=== PATIENT | male | born 1985 | race Caucasian/White ===

== ENCOUNTER 2018-12-03 16:36 | Emergency (ER) | payer SELFPAY ==
[2018-12-03 16:41] VITALS: BP 116/97
[2018-12-03] MEDS ORDERED: RIVA10TA (16:47)
--- NOTE | 2018-12-03 16:47 | ER Report ---
History and Physical Time Seen By MD: 16:47 Hx. of Stated Complaint: SPOUSE STATES PATIENT WAS IN PASSENGER SEAT WHEN HE STARTED TO SEIZE. DESCRIBED HIS ARMS WERE STIFF AND CONTRACTED TOWARDS MIDLINE. ESTIMATED SEIZURE LASTED 4 MINUTES AND THAT PATIENT WAS SOMNOLENT FOR 3 MINUTES AFTER. PATIENT FIRST ONLY KNEW HIS NAME. HE IS NOW COMPLETELY ORIENTED (ULISES TORRES MD) HPI/ROS 33-year-old male who admits to drinking approximately one half a gallon of vodka per day presents to the emergency department after having a seizure. He does not have a known seizure disorder. He is currently in the process of moving from [facility] to [place]. He stopped drinking vodka 3 days ago, and has only had 1-2 beers a day to try to control his tremor. His girlfriend was driving the car and noticed that he started with a rigid posture followed by diffuse shaking and drooling. The patient does not remember the episode. His girlfriend said it lasted approximately 6 minutes. He denies any recent trauma. He is supposed to be taking Xarelto for known multiple DVTs, but left his medication in [facility] and has not had any since November 23. Denies any chest pain or shortness of breath. He denies fever. He currently complains of a mild post ictal headache and a resting tremor. (ULISES TORRES MD) Home Meds Active Scripts Diazepam (VALIUM) 10 Mg Tablet, 1-2 TAB PO BID PRN for alcohol withdrawal, #15 TAB Prov:JOSE BALDWIN DO 12/03/18 Reported Medications Rivaroxaban 10 MG (Xarelto 10 MG) 10 Mg Tablet 12/03/18 Reviewed Nurses Notes: Yes Old Medical Records Reviewed: Yes (ULISES TORRES MD) Hx Smoking: Yes Smoking Status: Current: Every Day Smoker Hx Alcohol Use: Yes (ULISES TORRES MD) Constitutional Vital Sign - Last 24 Hours 12/03/18 16:41 Temp 98.0 Pulse 98 Resp 18 B/P (MAP) 116/97 Pulse Ox 97 O2 Delivery Room Air Intake and Output 0 12/03/18 12/03/18 12/04/18 14:59 22:59 06:59 Intake Total 300 ml Balance 300 ml (JOSE BALDWIN DO) Physical Exam General Appearance: The patient is alert, has no immediate need for airway protection and no current signs of toxicity. Eyes: Pupils equal and round no injection. Respiratory: Chest is non tender, lungs are clear to auscultation. Cardiac: regular rate and rhythm Gastrointestinal: Abdomen is soft and non tender, no masses, bowel sounds normal. Neck: Neck is supple and non tender. Extremities have full range of motion with pain and swelling in his left LE. He has a resting tremor Skin: No rashes or lesions. DIFFERENTIAL DIAGNOSIS: After history and physical exam differential diagnosis was considered for a seizure including but not limited to electrolyte abnormality, alcohol withdrawal, medication noncompliance, head injury, and breakthrough seizure. (ULISES TORRES MD) Medical Decision Making Data Points Result Diagram: 12/03/18 1652 12/03/18 1652 Laboratory Hematology Test 12/03/18 16:52 Red Blood Count 4.10 M/uL (4.00-5.60) Mean Corpuscular Volume 103.7 fL (80.0-96.0) Mean Corpuscular Hemoglobin 34.5 pg (26.0-33.0) Mean Corpuscular Hemoglobin Concent 33.2 g/dL (32.0-36.0) Red Cell Distribution Width 14.1 % (11.5-14.5) Mean Platelet Volume 8.2 fL (7.2-11.1) Neutrophils (%) (Auto) 58.1 % (39.4-72.5) Lymphocytes (%) (Auto) 26.0 % (17.6-49.6) Monocytes (%) (Auto) 12.7 % (4.1-12.4) Eosinophils (%) (Auto) 2.0 % (0.4-6.7) Basophils (%) (Auto) 1.2 % (0.3-1.4) Nucleated RBC Relative Count (auto) 0.1 /100WBC Neutrophils # (Auto) 3.0 K/uL (2.0-7.4) Lymphocytes # (Auto) 1.3 K/uL (1.3-3.6) Monocytes # (Auto) 0.7 K/uL (0.3-1.0) Eosinophils # (Auto) 0.1 K/uL (0.0-0.5) Basophils # (Auto) 0.1 K/uL (0.0-0.1) Nucleated RBC Absolute Count (auto) 0.00 K/uL Prothrombin Time 12.6 seconds (12.0-14.4) Prothromb Time International Ratio 0.94 Activated Partial Thromboplast Time 26 seconds (23-35) Sodium Level 136 mmol/L (137-145) Potassium Level 3.7 mmol/L (3.5-5.0) Chloride Level 98 mmol/L (98-107) Carbon Dioxide Level 23 mmol/L (22-30) Blood Urea Nitrogen 5 mg/dl (9-21) Creatinine 0.60 mg/dl (0.66-1.25) Glomerular Filtration Rate Calc > 60.0 Random Glucose 77 mg/dl (75-110) Lactate 2.9 mmol/L (0.7-2.1) Calcium Level 9.4 mg/dl (8.4-10.2) Magnesium Level 2.1 mg/dl (1.7-2.2) Total Bilirubin 0.9 mg/dl (0.2-1.3) Aspartate Amino Transf (AST/SGOT) 144 U/L (0-35) Alanine Aminotransferase (ALT/SGPT) 67 U/L (0-56) Alkaline Phosphatase 106 U/L (0-126) Total Protein 8.6 g/dl (6.3-8.2) Albumin 5.0 g/dl (3.5-5.0) Salicylates Level < 10 mg/L Salicylate Last Dose Date u Acetaminophen Level < 10 ug/ml Serum Alcohol 17 mg/dl Chemistry Test 12/03/18 16:52 White Blood Count 5.2 k/uL (4.5-11.0) Red Blood Count 4.10 M/uL (4.00-5.60) Hemoglobin 14.1 g/dL (14.0-18.0) Hematocrit 42.6 % (42.0-52.0) Mean Corpuscular Volume 103.7 fL (80.0-96.0) Mean Corpuscular Hemoglobin 34.5 pg (26.0-33.0) Mean Corpuscular Hemoglobin Concent 33.2 g/dL (32.0-36.0) Red Cell Distribution Width 14.1 % (11.5-14.5) Platelet Count 171 K/uL (150-450) Mean Platelet Volume 8.2 fL (7.2-11.1) Neutrophils (%) (Auto) 58.1 % (39.4-72.5) Lymphocytes (%) (Auto) 26.0 % (17.6-49.6) Monocytes (%) (Auto) 12.7 % (4.1-12.4) Eosinophils (%) (Auto) 2.0 % (0.4-6.7) Basophils (%) (Auto) 1.2 % (0.3-1.4) Nucleated RBC Relative Count (auto) 0.1 /100WBC Neutrophils # (Auto) 3.0 K/uL (2.0-7.4) Lymphocytes # (Auto) 1.3 K/uL (1.3-3.6) Monocytes # (Auto) 0.7 K/uL (0.3-1.0) Eosinophils # (Auto) 0.1 K/uL (0.0-0.5) Basophils # (Auto) 0.1 K/uL (0.0-0.1) Nucleated RBC Absolute Count (auto) 0.00 K/uL Prothrombin Time 12.6 seconds (12.0-14.4) Prothromb Time International Ratio 0.94 Activated Partial Thromboplast Time 26 seconds (23-35) Glomerular Filtration Rate Calc > 60.0 Lactate 2.9 mmol/L (0.7-2.1) Calcium Level 9.4 mg/dl (8.4-10.2) Magnesium Level 2.1 mg/dl (1.7-2.2) Total Bilirubin 0.9 mg/dl (0.2-1.3) Aspartate Amino Transf (AST/SGOT) 144 U/L (0-35) Alanine Aminotransferase (ALT/SGPT) 67 U/L (0-56) Alkaline Phosphatase 106 U/L (0-126) Total Protein 8.6 g/dl (6.3-8.2) Albumin 5.0 g/dl (3.5-5.0) Salicylates Level < 10 mg/L Salicylate Last Dose Date u Acetaminophen Level < 10 ug/ml Serum Alcohol 17 mg/dl Coagulation Test 12/03/18 16:52 Prothrombin Time 12.6 seconds Prothromb Time International Ratio 0.94 Activated Partial Thromboplast Time 26 seconds Toxicology Test 12/03/18 16:52 Salicylates Level < 10 mg/L Salicylate Last Dose Date u Acetaminophen Level < 10 ug/ml Serum Alcohol 17 mg/dl (JOSE BALDWIN DO) EKG/Imaging Imaging Results: Ultrasound of the right lower extremity was obtained. The results of the study are no findings consistent with acute DVT. The study was read by the radiologist. I viewed the images myself on the PACS system. (JOSE BALDWIN DO) ED Course/Re-evaluation ED Course Care was assumed from Dr. Torres at shift change with diagnostic CT and ultrasound of the lower extremity pending. Those studies were reviewed and are unremarkable. I had a long discussion with the patient's significant other and himself regarding admission to our behavioral health unit for medical detox since he had a alcohol withdrawal seizure. He is still mildly tachycardic. He showing no tremor or agitation after receiving Valium. Patient declined admission to [facility]. He is provided a prescription for Valium to prevent withdrawal seizures and aid through his alcohol withdrawal. She was administered an additional 20 g of Valium prior to discharge here in the emergency department. Decision to Disposition Date: Dec 03, 2018 Decision to Disposition Time: 18:52 (JOSE BALDWIN DO) Depart Departure Latest Vital Signs Vital Signs Date Time Temp Pulse Resp B/P (MAP) Pulse Ox O2 Delivery O2 Flow Rate FiO2 12/03/18 16:41 98.0 98 18 116/97 97 Room Air (JOSE BALDWIN DO) Impression: Primary Impression: Alcohol withdrawal seizure Condition: Improved Disposition: HOME OR SELF-CARE New Scripts Diazepam (VALIUM) 10 Mg Tablet 1-2 TAB PO BID PRN for alcohol withdrawal, #15 TAB Prov: JOSE BALDWIN DO 12/03/18 Patient Instructions: Alcohol Dependence (ED) Additional Instructions: Give Valium 1-2 tablets twice daily as needed for symptoms of withdrawal Follow-up with primary care within 1-3 days Problem Qualifiers Primary Impression: Alcohol withdrawal seizure Complication of substance-induced condition: uncomplicated Qualified Codes: F10.230 - Alcohol dependence with withdrawal, uncomplicated ULISES TORRES MD Dec 03, 2018 16:47 JOSE BALDWIN DO Dec 03, 2018 18:53
[2018-12-03] MEDS ORDERED: DIAZEPAM 50 MG/10 ML MDV IVP ONE (17:15)
[2018-12-03] MEDS ORDERED: DIAZEPAM 5 MG TAB PO ONE (17:15)
[2018-12-03] MEDS ORDERED: THIAMINE HCL(*) 200 MG/2 ML IN 100 MG, FOLIC ACID(*) 50 MG/10 ML INJ 1 MG, MULTIVITAMIN... IV ONE (17:15)
[2018-12-03 17:35] LABS: PLATELET COUNT, AUTOMATED 171 K/uL (150-450)
[2018-12-03 17:52] LABS: INR 0.94
--- NOTE | 2018-12-03 18:26 | RADIOLOGY IMAGING REPORT ---
FACILITY: [facility] PATIENT NAME: Tito Rosales : 1985 MR: [id number] V: [id number] EXAM DATE: [id number] ORDERING PHYSICIAN: ULISES TORRES TECHNOLOGIST: Location: [facility] [place] Patient: Tito Rosales : 1985 Visit/Account:[id number] Date of Sevice: 12/03/2018 EXAMINATION: Head CT without intravenous contrast HISTORY: New-onset seizure, detoxing from alcohol. COMPARISON: None. TECHNIQUE: Contiguous axial images were obtained from the skull base to the vertex without intraven ous contrast. Sagittal and coronal reformatted images are also submitted. One of the following dose optimization techniques was utilized in the performance of this exam: Autom ated exposure control; adjustment of the mA and/or kV according to the patient's size; or use of an i terative reconstruction technique. Specific details can be referenced in the facility's radiology C T exam operational policy. FINDINGS: Brain and intracranial structures: Ventricles, sulci, and cisterns are normal in size. Stokes-white ma tter differentiation is maintained. No midline shift, acute hemorrhage, acute infarct, or mass. Calvarium / scalp: Negative. No acute fracture. Skull base / visualized face: Negative. Visualized sinuses / orbits: Near complete opacification of the right maxillary sinus. Mild mucosal thickening in the ethmoid air cells and left maxillary sinus. IMPRESSION: No CT evidence of acute intracranial pathology. Paranasal sinus mucosal disease. Correlate for signs of acute sinusitis. Report Dictated By: Juan Torrez MD at 12/03/2018 6:12 PM Report E-Signed By: Juan Torrez MD at 12/03/2018 6:22 PM WSN:[id number]
--- NOTE | 2018-12-03 18:27 | RADIOLOGY IMAGING REPORT ---
FACILITY: [facility] PATIENT NAME: Tito Rosales : 1985 MR: [id number] V: [id number] EXAM DATE: ORDERING PHYSICIAN: ULISES TORRES TECHNOLOGIST: Location: [facility] [place] Patient: Tito Rosales : 1985 Visit/Account:[id number] Date of Sevice: 12/03/2018 CHEST SINGLE AP Indication: Seizure.. Comparison: None available Findings: Cardiomediastinal silhouette and pulmonary vessels within normal limits. There is no focal infiltrate or lobar consolidation. No pneumothorax or pleural effusion. Small nodular opacity in the medial right lower lobe appears to be a vessel seen on end. No discrete nodules. Upper abdomen is unremarkable. No acute bony abnormality. IMPRESSION: 1. No acute cardiopulmonary process. Report Dictated By: Laron Moore at 12/03/2018 6:21 PM Report E-Signed By: Laron Moore at 12/03/2018 6:22 PM WSN:[id number]
[2018-12-03] MEDS ORDERED: DIAZ-305 PO (18:55)
[2018-12-03] MEDS ORDERED: DIAZEPAM 5 MG TAB TH 2 TAB/BOTTLE PO ONE (18:55)
[2018-12-03] MEDS ORDERED: DIAZEPAM 10 MG TAB PO ONE (18:55)
--- NOTE | 2018-12-03 19:08 | RADIOLOGY IMAGING REPORT ---
FACILITY: [facility] PATIENT NAME: Tito Rosales : 1985 MR: [id number] V: [id number] EXAM DATE: ORDERING PHYSICIAN: ULISES TORRES TECHNOLOGIST: Location: [facility] [place] Patient: Tito Rosales : 1985 Visit/Account:[id number] Date of Sevice: 12/03/2018 Venous Doppler ultrasound left lower extremity Indication: Left leg pain.. Comparison: None Available Findings: Duplex Doppler and color flow imaging was performed. The femoral, and popliteal veins are all patent and compressible with normal Doppler wave forms. There are normal responses to augmentati on. The posterior tibial and peroneal veins are patent in the calf. The left common femoral vein does show nonocclusive thrombus without complete compressibility with so me blood flow. This is situated between the greater saphenous vein in the proximal femoral vein. Greater saphenous vein appears patent. Subcutaneous tissues are unremarkable. IMPRESSION: 1. Positive nonoccluding thrombus seen in the common femoral vein. Unsure if this is chronic or acute . The remaining veins of the left leg are clear. I called report to Dr. Gonzalez at 12/03/2018 7:04 PM. Report Dictated By: Laron Moore at 12/03/2018 6:59 PM Report E-Signed By: Laron Moore at 12/03/2018 7:04 PM WSN:[id number]
--- NOTE | 2018-12-03 19:46 | EKG ---
FACILITY: [facility] [place] PATIENT NAME: SORAYA AMOS : [id number] MR: [id number] V: [id number] EXAM DATE: ORDERING PHYSICIAN: ULISES TORRES TECHNOLOGIST: MARIANA Test Reason : SEIZURES Blood Pressure : / mmHG Vent. Rate : 095 BPM Atrial Rate : 095 BPM P-R Int : 194 ms QRS Dur : 076 ms QT Int : 346 ms P-R-T Axes : 068 081 074 degrees QTc Int : 434 ms Sinus rhythm Nonspecific ST findings No previous ECGs available Confirmed by ANAI BRUNO ([id number] on 12/03/2018 9:35:42 PM Referred By: MELISSA Confirmed By:ANAI BRUNO
== END 2018-12-03 19:04 | disposition home or self-care (01) ==
LOC: ER 17:00
DX: F10.239 Alcohol dependence with withdrawal, unspecified (principal); R56.9 Unspecified convulsions; Z86.718 Personal history of other venous thrombosis and embolism; F17.200 Nicotine dependence, unspecified, uncomplicated
CPT/HCPCS: 36415; 70450; 71045; 80320; 80329; 83605; 83735; 84443; 85025; 85610; 85730; 93005; 93971; 96374; 96375; 99284; J3360; J3411; J7030; 82040; 82247; 82310; 82374; 82435; 82565; 82947; 84075; 84132; 84155; 84295; 84450; 84460; 84520